=== PATIENT | male | born 1975 | race Hispanic/Latino ===

== ENCOUNTER 2020-12-28 13:08 | Emergency (ER) | payer BC ==
[~2020-12-28] VITALS: Ht 167.6 cm; Wt 95.0 kg
[2020-12-28] MEDS ORDERED: TETANUS/DIPHTHERIA TOX ADULT 0.5 ML SYR IM ONE (13:45)
[2020-12-28] MEDS ORDERED: PRAVASTATIN SOD40 MG (13:47)
[2020-12-28] MEDS ORDERED: METFORMIN HCL500 MG PO (13:47)
[2020-12-28] MEDS ORDERED: GLYBURIDE5 MG PO (13:47)
[2020-12-28] MEDS ORDERED: BENICAR5 MG PO (13:47)
[2020-12-28] MEDS ORDERED: IBUPROFEN 600 MG TAB PO STA (13:57)
[2020-12-28] MEDS ORDERED: TETANUS/DIPHTHERIA TOX ADULT 0.5 ML SYR ONE (13:58)
[2020-12-28] MEDS ORDERED: IBUPROFEN 600 MG TAB ONE (13:58)
[2020-12-28] MEDS ORDERED: CEFDINIR300 MG PO (15:11)
== END 2020-12-28 15:24 | disposition home or self-care (01) ==
LOC: FSED 13:40
DX: S92.325A Nondisplaced fracture of second metatarsal bone, left foot, initial encounter for closed fracture (principal); W20.8XXA Other cause of strike by thrown, projected or falling object, initial encounter; Y92.008 Other place in unspecified non-institutional (private) residence as the place of occurrence of the external cause; I10 Essential (primary) hypertension; E11.9 Type 2 diabetes mellitus without complications; E78.5 Hyperlipidemia, unspecified
CPT/HCPCS: 90471; 90714; 96372; 99284